=== PATIENT | male | born 2005 | race Caucasian/White ===

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

== ENCOUNTER 2025-03-04 12:26 | Emergency (ER) | payer MEDICAID ==
[2025-03-04 12:43] VITALS: TEMP 97.7
[2025-03-04] MEDS ORDERED: PROTONIX 40 MG IV IV ONE (12:46)
[2025-03-04] MEDS ORDERED: Zofran 4 MG/2 ML VIAL ONE (12:46)
[2025-03-04] MEDS ORDERED: Sodium Chloride 0.9% 1000 ML 1,000 ML ONE (12:46)
[2025-03-04] MEDS ORDERED: Pepcid 20 MG VIAL IV ONE (12:46)
[2025-03-04 12:50] LABS: Absolute Neutrophil Ct (ANC) 3.24 x10^3/uL (1.78-5.38); BASOPHIL % 0.4 % (0.2-1.2); Basophil (Absolute #) 0.03 x10^3/uL (0.01-0.08); Eosinophil % 1.7 % (0.8-7.0); Eosinophil (Absolute #) 0.12 x10^3/uL (0.04-0.54); Hematocrit 41.8 % (40.1-51.0); Hemoglobin 14.5 g/dL (13.7-17.5); IMMATURE GRAN # 0.01 x10^3u/L (0.001-0.031); IMMATURE GRAN % 0.1 % (0.001-0.429); Lymphocyte (Absolute #) 3.04 x10^3/uL (1.32-3.57); Lymphocytes % 43.6 % (21.8-53.1); Mean Cell Volume 87.6 fL (79.0-92.2); Mean Corpuscular Hemoglobin 30.4 pg (25.7-32.2); Mean Corpuscular Hgb Concent. 34.7 g/dL (32.3-36.5); Mean Platelet Volume 8.3 fL (9.4-12.4); Monocyte (Absolute #) 0.54 x10^3/uL (0.30-0.82); Monocytes % 7.7 % (5.3-12.2); Neutrophil % 46.5 % (34.0-67.9); Platelet Count 329 x10^3/uL (163-337); Red Blood Count 4.77 x10^6/uL (4.63-6.08); Red Cell Distribution Width 12.4 % (11.6-14.4)
[2025-03-04] MEDS: Sodium Chloride 0.9% 1000 ML 1,000 ML IV STA (12:53)
[2025-03-04] MEDS: Pepcid 20 MG VIAL IV ONE (12:54)
[2025-03-04] MEDS: PROTONIX 40 MG IV IV ONE (12:54)
[2025-03-04] MEDS: Zofran 4 MG/2 ML VIAL IV ONE (12:54)
[2025-03-04 13:02] VITALS: O2SAT 100
[2025-03-04 13:08] LABS: ANION GAP 15.6 MEQ/L (5-15); Calcium 9.8 mg/dL (8.4-10.2); Creatinine 1 0.84 mg/dL (0.66-1.25); EST GLOMERULAR FILTRATION RATE 127.2 ML/MIN; Potassium 4.1 mmol/L (3.5-5.1); Total Protein 7.8 g/dL (6.3-8.2)
--- NOTE | 2025-03-04 13:10 | ERPHSYRPT ---
- History of Present Illness Time Seen by Provider: 03/04/25 13:08 Source: patient, police Exam Limitations: no limitations Patient Subjective Stated Complaint: patient has been puking up blood for the last week Triage Nursing Assessment: alert and orientedx3, bowel sounds present x4, lung sounds clear , pulses present and equal bilateral radius. patient puking up bnright red blood says not cough of anything just get a bunch of blood in his mouth and has to spit it out Physician History: 19-year-old male without any significant past medical history recently in the present started having some blood in his vomiting for last 1 week which got worse today so he was brought into the emergency room. Patient brought some phrase blood vomitus in the plastic bag to the emergency room. Patient denies any other symptoms including abdominal pain blood in the stool or urine headache chest pain nausea vomiting shortness of breath. Timing/Duration: week(s) (one week) Severity: mild Associated Symptoms: denies symptoms Allergies/Adverse Reactions: Penicillins Allergy (Verified 03/04/25 13:02) Hx Tetanus, Diphtheria Vaccination/Date Given: Yes Hx Influenza Vaccination/Date Given: Yes Hx Pneumococcal Vaccination/Date Given: No Immunizations Up to Date: Yes Travel Risk - International Travel Have you traveled outside of the country in past 3 weeks: No - Emerging Infectious Disease Are you exhibiting symptoms associated with any current EIDs: No - Review of Systems Constitutional: No Fever, No Chills Eyes: No Symptoms Ears, Nose, & Throat: No Symptoms Respiratory: No Cough, No Dyspnea Cardiac: No Chest Pain, No Edema, No Syncope Abdominal/Gastrointestinal: Hematemesis, No Abdominal Pain, No Nausea, No Vomiting, No Diarrhea Genitourinary Symptoms: No Dysuria Musculoskeletal: No Back Pain, No Neck Pain Skin: No Rash Neurological: No Dizziness, No Focal Weakness, No Sensory Changes Psychological: No Symptoms Endocrine: No Symptoms Hematologic/Lymphatic: No Symptoms Immunological/Allergic: No Symptoms All Other Systems: Reviewed and Negative - Past Medical History Pertinent Past Medical History: Yes Neurological History: No Pertinent History ENT History: No Pertinent History Cardiac History: No Pertinent History Respiratory History: Asthma Endocrine Medical History: No Pertinent History Musculoskeletal History: No Pertinent History GI Medical History: No Pertinent History History: No Pertinent History Psycho-Social History: Attention Deficit Disorder, Bipolar, Depression Male Reproductive Disorders: No Pertinent History Other Medical History: ODD - Past Surgical History Past Surgical History: No Significant Family History: no pertinent family hx - Social History Smoking Status: Current every day smoker Drug Use: marijuana, methamphetamines - Social Determinants of Health Will the patient participate in the screening: Declined to provide - Nursing Vital Signs Nursing Vital Signs: Initial Vital Signs Pulse Rate 68 03/04/25 12:34 Respiratory Rate 17 03/04/25 12:34 Blood Pressure 138/70 03/04/25 12:34 O2 Sat by Pulse Oximetry 100 03/04/25 12:34 Pain Scale Pain Intensity 0 - Physical Exam General Appearance: no apparent distress, alert Eye Exam: PERRL/EOMI, eyes nml inspection Ears, Nose, Throat Exam: normal ENT inspection, TMs normal, pharynx normal, moist mucous membranes Neck Exam: normal inspection, non-tender, supple, full range of motion Respiratory Exam: normal breath sounds, lungs clear, No respiratory distress Cardiovascular Exam: regular rate/rhythm, normal heart sounds, normal peripheral pulses Gastrointestinal/Abdomen Exam: soft, normal bowel sounds, No tenderness, No mass Back Exam: normal inspection, normal range of motion, No CVA tenderness, No vertebral tenderness Extremity Exam: normal inspection, normal range of motion, pelvis stable Neurologic Exam: alert, oriented x 3, cooperative, normal mood/affect, nml cerebellar function, nml station & gait, sensation nml, No motor deficits Skin Exam: normal color, warm, dry, No rash Lymphatic Exam: No adenopathy SpO2 Interpretation: normal SpO2: 100 O2 Delivery: Room Air - Course Nursing assessment & vital signs reviewed: Yes Ordered Tests: Active Orders 24 hr Category Date Time Status IV Insertion STAT Care 03/04/25 12:35 Active AMYLASE Stat Lab 03/04/25 12:47 Completed CBC W DIFF Stat Lab 03/04/25 12:47 Completed CMP Stat Lab 03/04/25 12:47 Completed LIPASE Stat Lab 03/04/25 12:47 Completed Medication Summary Discontinued Medications Generic Name Dose Route Start Last Admin Trade Name Freq PRN Reason Stop Dose Admin Famotidine 20 mg 03/04/25 12:41 03/04/25 12:54 Famotidine 20 Mg/1 Vial IV 03/04/25 12:42 20 mg STAT ONE Administration Famotidine Confirm 03/04/25 12:46 Famotidine 20 Mg/1 Vial Administered 03/04/25 12:47 Dose 20 mg IV .STK-MED ONE Sodium Chloride 1,000 mls @ 999 mls/hr 03/04/25 12:35 03/04/25 12:53 Sodium Chloride 0.9% 1000 Ml IV 03/04/25 13:35 999 mls/hr .Q1H1M STA Administration Sodium Chloride Confirm 03/04/25 12:46 Sodium Chloride 0.9% 1000 Ml Administered 03/04/25 12:47 Dose 1,000 mls @ ud .ROUTE .STK-MED ONE Ondansetron HCl 4 mg 03/04/25 12:41 03/04/25 12:54 Ondansetron Hcl 4 Mg/2 Ml Vial IV 03/04/25 12:42 4 mg STAT ONE Administration Ondansetron HCl Confirm 03/04/25 12:46 Ondansetron Hcl 4 Mg/2 Ml Vial Administered 03/04/25 12:47 Dose 4 mg .ROUTE .STK-MED ONE Pantoprazole Sodium 40 mg 03/04/25 12:41 03/04/25 12:54 Pantoprazole 40 Mg Vial IV 03/04/25 12:42 40 mg STAT ONE Administration Pantoprazole Sodium Confirm 03/04/25 12:46 Pantoprazole 40 Mg Vial Administered 03/04/25 12:47 Dose 40 mg IV .STK-MED ONE Lab/Rad Data: Laboratory Result Diagrams 03/04/25 12:47 03/04/25 12:47 Laboratory Results 03/04/25 03/04/25 Range/Units 12:47 12:47 WBC 7.0 (4.23-9.07) x10^3/uL RBC 4.77 (4.63-6.08) x10^6/uL Hgb 14.5 (13.7-17.5) g/dL Hct 41.8 (40.1-51.0) % MCV 87.6 (79.0-92.2) fL MCH 30.4 (25.7-32.2) pg MCHC 34.7 (32.3-36.5) g/dL RDW 12.4 (11.6-14.4) % Plt Count 329 (163-337) x10^3/uL MPV 8.3 L (9.4-12.4) fL Gran % 46.5 (34.0-67.9) % Immature Gran % (Auto) 0.1 (0.001-0.429) % Nucleat RBC Rel Count 0.0 (0.00-0.2) % Eos # (Auto) 0.12 (0.04-0.54) x10^3/uL Immature Gran # (Auto) 0.01 (0.001-0.031) x10^3u/L Absolute Lymphs (auto) 3.04 (1.32-3.57) x10^3/uL Absolute Monos (auto) 0.54 (0.30-0.82) x10^3/uL Absolute Nucleated RBC 0.00 (0.00-0.012) x10^3u/L Lymphocytes % 43.6 (21.8-53.1) % Monocytes % 7.7 (5.3-12.2) % Eosinophils % 1.7 (0.8-7.0) % Basophils % 0.4 (0.2-1.2) % Absolute Granulocytes 3.24 (1.78-5.38) x10^3/uL Basophils # 0.03 (0.01-0.08) x10^3/uL Sodium 142 (135-145) mmol/L Potassium 4.1 (3.5-5.1) mmol/L Chloride 101 (98-107) mmol/L Carbon Dioxide 30 (22-30) mmol/L Anion Gap 15.6 H (5-15) MEQ/L BUN 14 (9-20) mg/dL Creatinine 0.84 (0.66-1.25) mg/dL Estimated GFR 127.2 ML/MIN Glucose 96 (74-106) mg/dL Calcium 9.8 (8.4-10.2) mg/dL Total Bilirubin 1.00 (0.2-1.3) mg/dL AST 27 (17-59) U/L ALT 16 (0-50) U/L Alkaline Phosphatase 64 (38-126) U/L Serum Total Protein 7.8 (6.3-8.2) g/dL Albumin 5.0 (3.5-5.0) g/dL Amylase 65 (30-110) U/L Lipase 44 (23-300) U/L - Progress Progress: improved Counseled pt/family regarding: lab results, diagnosis, need for follow-up Medical Desision Making - Independent Historian Additional History obtained from: EMS - Diagnostic Testing Diagnostic test were ordered, analyzed, and reviewed by me: Yes - Risk of complications Minimal Risk: Minimal risk of morbidity - Departure Departure Disposition: [facility] Clinical Impression: Hematemesis of fresh blood GERD (gastroesophageal reflux disease) Qualifiers: Esophagitis presence: with esophagitis Esophagitis bleeding: with hemorrhage Q ualified Code(s): K21.01 - Gastro-esophageal reflux disease with esophagitis, with bleeding Condition: Stable Critical Care Time: No Referrals: CARI LOONEY [Primary Care Provider, [facility]] - Follow up/PCP as directed Instructions: Esophagitis, Acid reflux and GERD in adults Additional Instructions: Discharge/Care Plan JOSE MIGUELHONEY KNIGHT was seen on 03/04/25 in the Emergency Room. The patient was counseled regarding Diagnosis,Lab results, Imaging studies, need for follow up and when to return to the Emergency Room. Prescriptions given: Discharge Note I have spoken with the patient and/or caregivers. I have explained the patient's condition, diagnosis and treatment plan based on the information available to me at this time. I have answered the patient's and/or caregiver's questions and addressed any concerns. The patient and/or caregivers have as good understanding of the patient's diagnosis, condition and treatment plan as can be expected at this point. The vital signs have been stable. The patient's condition is stable and appropriate for discharge from the emergency department. The patient will pursue further outpatient evaluation with the primary care physician or other designated or consulting physician as outlined in the discharge instructions. The patient and/or caregivers are agreeable to this plan of care and follow-up instructions have been explained in detail. The patient and/or caregivers have received these instruction. The patient/and or caregivers are aware that any significant change in condition or worsening of symptoms should prompt an immediate return to this or the closest emergency department or call 911. HONEY GILLESPIE was seen on 03/04/25 n the Emergency Room. At that time you were treated for an emergent condition, during your visit Laboratory, Radiology and/or other procedures may have been ordered. It is very important that you follow-up with your Primary Care Physician CARI LOONEY within the next 24-48 hours to review your Emergency Room visit and the final results of testing that was ordered. Some test results such as Urine Cultures, Blood Cultures, and other cultures if ordered will not be finalized for 24-48 hours. If you do not have a Primary Care Provider please call the medical records department at [phone] to obtain a copy of your results or you may sign into our patient portal to obtain these results by visiting us @ [email or web address] and completing the following steps: 1. Click on the Patient Portal link 2. Click the Patient Self Enrollment Link to complete the enrollment form and entering your 3. Once the enrollment form is completed you will receive an email with a temporary ID and password at the email address you provided. 4. Next choose a user name and password. Your user name must be at least 4 characters long and your password must be at least 4 characters long. 5. Choose a security question from the list and provide your answer to the question. If you already have signed into the Health Portal you may access your Health Care Information 24/05 by the following steps: 1. Login to our website @ [email or web address] 2. Enter your original user name and password. FAQS The [facility] Portal is an online tool that contains your Lab Results, Radiology Reports, Visit History, Discharge Instructions and Health Summary Lab and Radiology Results will not be available for 72 hours on the portal. The Portal is a secure site, passwords are encryted and URLs are re-written so they cannot be copied and pasted. You and authorized family members are the only ones who can access your Portal. Also there is a timeout feature that protects your information if you leave the Portal page open. If you have technical difficulty please use the Contact Us link on the page this will allow you to submit any questions you have regarding the Portal or you may contact the Medical Record Department at [phone]. Prescriptions: Famotidine 20 mg [Pepcid 20 MG] 20 mg PO BID #60 tablet PANTOPRAZOLE 40 mg Tablet [Protonix 40MG Tablet] 40 mg PO QPM #30 tab
[2025-03-04 14:04] VITALS: BP 143/65; PULSE 67; RESP 17
[2025-03-06 08:08] LABS: HBsAg Screen Negative (Negative); HCV Ab Non Reactive (Non Reactive); Hep B Core Ab, IgM Negative (Negative)
[2025-03-06 08:09] LABS: Hep A Ab, IgM Negative (Negative)
== END 2025-03-04 14:08 | disposition home or self-care (01) ==
LOC: ED 12:26
DX: K21.01 Gastro-esophageal reflux disease with esophagitis, with bleeding (principal); K92.0 Hematemesis; Z79.899 Other long term (current) drug therapy; Z72.0 Tobacco use
CPT/HCPCS: 36415; 80053; 80074; 82150; 83690; 85025; 96361; 96374; 96375; 99284; J2405